=== PATIENT | male | born 1990 | race Caucasian/White ===

== ENCOUNTER 2017-03-31 20:12 | Emergency (ER) | payer MEDICARE, OTHER ==
[2017-03-31 20:23] VITALS: BP 146/95
--- NOTE | 2017-03-31 21:01 | EDM.PDOC ---
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 He states that he inserted a tool into the pipe which was then pressurized up to 7000 lbs/sq-in. He states that when the pressure built to 5000 lbs/sq-in, the tool shot out, striking him just above his right eyebrow. He states that he was knocked to the ground and dazed, but he was not knocked unconscious. He is otherwise uninjured. The patient does not have a PCP. Right Face Pain Score (Numeric/FACES): 4 - Related Data Allergies Allergy/AdvReac Type Severity Reaction Status Date / Time No Known Allergies Allergy Verified 02/14/15 21:19 Home Meds: Home Meds Amoxicillin/Potassium Clav [Augmentin 875-125 Tablet] 1 tab PO Q12H #20 tablet 03/31/17 [Rx] Past Medical History - Past Surgical History HEENT Surgical History: Reports: Oral Surgery ([place] teeth extraction) Social & Family History - Tobacco Use Smoking Status *Q: Current Every Day Smoker Tobacco Use Within Last Twelve Months: Smokeless Tobacco (Chews on occasion) Years of Tobacco use: 5 Packs/Tins Daily: 0.8 - Caffeine Use Caffeine Use: Reports: Energy Drinks, Soda, Tea - Alcohol Use Alcohol Use History: Yes Alcohol Use Frequency: Socially - Recreational Drug Use Recreational Drug Use: No - Living Situation & Occupation Living situation: Reports: Single, Alone Occupation: Employed ([employer]) ED ROS GENERAL - Review of Systems Review Of Systems: See Below Constitutional: Reports: No Symptoms HEENT: Reports: No Symptoms Respiratory: Reports: No Symptoms Cardiovascular: Reports: No Symptoms Endocrine: Reports: No Symptoms GI/Abdominal: Reports: No Symptoms : Reports: No Symptoms Musculoskeletal: Reports: No Symptoms Skin: Reports: No Symptoms Neurological: Reports: No Symptoms Psychiatric: Reports: No Symptoms Hematologic/Lymphatic: Reports: No Symptoms Immunologic: Reports: No Symptoms ED EXAM, SKIN/RASH Exam: See Below Exam Limited By: No Limitations General Appearance: Alert, WD/WN, No Apparent Distress Eye Exam: Bilateral Eye: Normal Inspection Ears: Normal External Exam, Hearing Grossly Normal Nose: Normal Inspection, No Blood Throat/Mouth: Normal Inspection, Normal Lips, Normal Voice, No Airway Compromise Head: Normocephalic, Other (Stellate laceration just above the right eyebrow with associated swelling. There is tenderness to palpation of the right supraorbital process.) Neurological: Alert, Oriented, CN II-XII Intact, Normal Cognition, No Motor/ Sensory Deficits Psychiatric: Normal Affect ED SKIN PROCEDURES - Laceration/Wound Repair Right Face Lac/wound length in cm: 3 Appearance: subcutaneous, stellate, clean Distal NVT: neuro & vascular intact, no tendon injury Anesthetic Type: topical (LET) Skin prep: providone-iodine (betadine) Exploration/Debridement/Repair: wound explored, in a bloodless field, explored to base, no foreign material found, wound margins revised Closed with: sutures Suture size: other (5-0) # of sutures: 10 Suture type: nylon, interrupted, simple Sterile dressing applied: nurse Tetanus status addressed: Yes Complications: No Course - Vital Signs Last Recorded V/S: Last Vital Signs Temp 36.7 C 03/31/17 20:22 Pulse 85 03/31/17 20:22 Resp 20 03/31/17 20:22 BP 146/95 H 03/31/17 20:22 Pulse Ox 100 03/31/17 20:22 - Orders/Labs/Meds Meds: Medications Discontinued Medications Generic Name Dose Route Start Last Admin Trade Name Eunice PRN Reason Stop Dose Admin Amoxicillin/Clavulanate Potassium 1 tab 03/31/17 21:16 03/31/17 21:21 Augmentin 875 Mg/125 Mg PO 03/31/17 21:17 1 tab ONETIME ONE Administration Lidocaine/Tetracaine 2 ml 03/31/17 21:09 03/31/17 21:14 Let Soln TOP 03/31/17 21:10 2 ml ONETIME ONE Administration - Radiology Interpretation Free Text/Narrative:: 03/31/2017 21:56 CT maxillofacial sinuses without contrast is read by Dr. Adam as: 1. Fracture within the outer table of the right frontal sinus with inward displacement of the fracture. Inner table is intact. 2. Small density within the soft tissues in the area of the fracture either due to foreign body or small displaced fracture fragment. 3. Mucosal thickening within all the paranasal sinuses most likely representing mild chronic and pre-existing sinusitis. - Re-Assessments/Exams Free Text/Narrative Re-Assessment/Exam: 03/31/17 21:[address] scan has been performed, however, has not yet been read. On cursory review, it appears that the patient had a fracture of the anterior wall of his right frontal sinus. As he has a stellate laceration overlying this , this is an open fracture. Current guidelines recommend antibiotic prophylaxis in such circumstances. I will start the patient on oral Augmentin. 03/31/17 22:35 The patient received 10 sutures to his right eyebrow laceration. He has been started on oral Augmentin. I will have him followup with a plastic surgeon. Departure - Departure Time of Disposition: 22:36 Disposition: Home, Self-Care 01 Condition: fair Clinical Impression: Facial laceration, Frontal sinus fracture - Discharge Information Referrals: PCP,None [Primary Care Provider] - Matt Springer MD [Ordering Only Provider] - Forms: ED Department Discharge Additional Instructions: You were seen in the emergency room after a pressure testing tool failed, striking you above your right eye. Workup in the ER included a CT scan of your face. The CT found that your right frontal sinus is fractured. The laceration above your right eyebrow was sutured. Keep the wound clean with ordinary soap and water. Cover with a clean dressing , daily, to help keep it clean. You have been started on the antibiotic Augmentin. Take one tablet every 12 hours, as prescribed. Finish the entire prescription unless told otherwise by a doctor. Take [id number] ibuprofen 2-3 tablets (400-600 mg) every 8 hours, with food, as needed for discomfort. Followup with the plastic surgeon Dr. Barbara Springer at the next available appointment. Your sutures should be ready for removal by Saturday, a 04/10/2017. This can be done by Dr. Springer, at a walk-in clinic, or back in the ER. If any other problems, please do not hesitate to return to the ER.
[2017-03-31] MEDS ORDERED: Lidocaine/EPINEPHrine/Tetracaine Soln 1 ML TOP ONE (21:09)
[2017-03-31] MEDS ORDERED: Amoxicillin/Clavulanate K 875-125 MG Tab PO ONE (21:16)
--- NOTE | 2017-03-31 21:28 | CT ---
CT facial bones Technique: Multiple axial sections through the facial bones were obtained. Reconstructed coronal and sagittal images were reviewed. Comparison: No previous study. Findings: Fracture is identified within the outer table of the right frontal sinus. Inner table is intact. Outer table shows inward displacement into the sinus by approximately 7.5 mm. Small opacity is seen within the adjacent soft tissues possibly due to small foreign body. Other etiology could be a minimal bony fragment from the fracture. Mild areas of mucosal thickening are seen within the frontal, ethmoid and maxillary sinuses as well as sphenoid sinus most likely representing mild pre-existing chronic sinusitis. Orbital vences are intact. Mandible is intact. No additional fracture is seen. Right and left globes are symmetric. Impression: 1. Fracture within the outer table of the right frontal sinus with inward displacement of the fracture. Inner table is intact. 2. Small density within the soft tissues in the area of the fracture either due to foreign body or small displaced fracture fragment. 3. Mucosal thickening within all the paranasal sinuses most likely representing mild chronic and pre-existing sinusitis. Diagnostic code #3
== END 2017-03-31 23:00 | disposition home or self-care (01) ==
LOC: JD.ED 20:12
DX: S02.19XA Other fracture of base of skull, initial encounter for closed fracture (principal); S01.111A Laceration without foreign body of right eyelid and periocular area, initial encounter; F17.210 Nicotine dependence, cigarettes, uncomplicated; W22.8XXA Striking against or struck by other objects, initial encounter; Y99.0 Civilian activity done for income or pay
CPT/HCPCS: 12013; 70486; 99284; A9270; 99283

== ENCOUNTER 2024-04-27 13:07 | Emergency (ER) | payer OTHER ==
[2024-04-27] MEDS: predniSONE 10 MG Tab PO ONE (14:10)
[2024-04-27] MEDS: Ketorolac 60 MG/2 ML SDV IM ONE (14:12)
[2024-04-27] MEDS: tiZANidine 4 MG Tab PO ONE (14:12)
[2024-04-27 16:08] VITALS: BP 159/84; PULSE 84
== END 2024-04-27 14:17 | disposition home or self-care (01) ==
LOC: JD.ED 13:07
DX: M54.50 Low back pain, unspecified (principal); F17.210 Nicotine dependence, cigarettes, uncomplicated; K21.9 Gastro-esophageal reflux disease without esophagitis; Z86.16 Personal history of COVID-19; Z79.899 Other long term (current) drug therapy
CPT/HCPCS: 96372; 99283; A9270-GY; J1885; J7512